=== PATIENT | male | born 1990 | race Two or more races ===

== ENCOUNTER 2016-09-04 20:42 | Emergency (ER) | payer OTHER ==
[2016-09-04 20:48] VITALS: BP 143/81; PULSE 88; TEMP 98.3; BMI 25.7
--- NOTE | 2016-09-04 20:56 | PDOC ---
History of Present Illness - General History Source: Patient Exam Limitations: No Limitations - History of Present Illness Initial Comments: 09/04/16 21:18 The patient is a 25 year old male with no significant past medical history, who presents to the ED with left sided neck pain that first began 3 days ago. Patient states the pain radiates down the left arm and to the left shoulder blade. He states he has been taking Motrin 600 mg with mild alleviation. Patient states he does [employer]. Patient states he has been seeing a Chiropractor for the past two weeks. He informed he that he might have a pinched nerve. PAST MEDICAL HISTORY: no significant history PAST SURGICAL HISTORY: no significant history FAMILY HISTORY: no pertinent history SOCIAL HISTORY: Pt lives with family and is employed. MEDICATIONS: reviewed ALLERGIES: As per nursing notes ROS General: No fevers or chills, no weakness, no weight loss HEENT: No change in vision. No sore throat,. No ear pain CardioVascular: No chest pain or shortness of breath Respiratory:No cough, or wheezing. Gastrointestinal: no nausea, vomiting, diarrhea or constipation, No rectal bleeding Genitourinary: No dysuria, hematuria, or frequency Musculoskeletal: + left sided neck pain radiating to the left shoulder blade and down the left arm. Neurologic: No headache, vertigo, dizziness or loss of consciousness Psychiatric: nor depression Skin: No rashes or easy bruising Endocrine: no increased thirst or abnormal weight change Allergic: no skin or latex allergy All other systems reviewed and normal PE GENERAL: The patient is awake, alert, and fully oriented, in no acute distress. HEAD: Normal with no signs of trauma. EYES: Pupils equal, round and reactive to light, extraocular movements intact, sclera anicteric, conjunctiva clear. EXTREMITIES: Tenderness to the cervical spine with left paraspinal spasm of the lateral neck and the upper shoulder.Normal range of motion, no edema. NEUROLOGICAL: Normal speech, normal gait. PSYCH: Normal mood, normal affect. SKIN: Warm, Dry, normal turgor, no rashes or lesions noted. <Josue Carl - Last Filed: 09/04/16 21:18> - General History Source: Patient Exam Limitations: No Limitations - History of Present Illness Initial Comments: 09/04/16 23:23 A portion of this note was documented by scribe services under my direction. I have reviewed the details of the note, within reason, and agree with the documentation. The case summary and management plan written by me. Assessment and plan: This is a 25-year-old male who comes in complaining of neck pain. Patient does martial arts and injured it while doing martial arts 3 days ago. Patient had a cervical spine x-ray that was questionable for subluxation however CAT scan was negative for any acute subluxation or injury. Patient given muscle relaxant and anti-inflammatory and it feels better. Patient discharged home with prescription for additional medication. Patient will follow-up with an orthopedist. Patient given referral to orthopedist <Mallorie White I - Last Filed: 09/04/16 23:25> - General Chief Complaint: Pain, Acute Stated Complaint: STATES HE HAS A PINCHED NERVE IN HIS NECK Time Seen by Provider: 09/04/16 20:43 Past History <Josue Carl - Last Filed: 09/04/16 21:18> - Past Medical History Other medical history: PINCHED NERVE - Psycho/Social/Smoking Cessation Hx Anxiety: No Suicidal Ideation: No Smoking History: Never smoked Have you smoked in the past 12 months: No Information on smoking cessation initiated: No Hx Alcohol Use: No Drug/Substance Use Hx: No Substance Use Type: None <Mallorie White I - Last Filed: 09/04/16 23:25> - Past Medical History Allergies/Adverse Reactions: Allergies Allergy/AdvReac Type Severity Reaction Status Date / Time No Known Allergies Allergy Verified 09/04/16 20:43 Home Medications: Ambulatory Orders NK [No Known Home Medication] 09/04/16 *Physical Exam - Vital Signs Last Vital Signs Temp Pulse Resp BP Pulse Ox 98.3 F 88 18 143/81 98 09/04/16 20:44 09/04/16 20:44 09/04/16 20:44 09/04/16 20:44 09/04/16 20:44 <Josue Carl - Last Filed: 09/04/16 21:18> - Vital Signs Last Vital Signs Temp Pulse Resp BP Pulse Ox 98.3 F 88 18 143/81 98 09/04/16 20:44 09/04/16 20:44 09/04/16 20:44 09/04/16 20:44 09/04/16 20:44 <Mallorie White I - Last Filed: 09/04/16 23:25> *DC/Admit/Observation/Transfer - Attestations Scribe Attestion: 09/04/16 21:19 Documentation prepared by Josue Carl, acting as certified medical assistant for Mallorie White MD. <Josue Carl - Last Filed: 09/04/16 21:18> - Discharge Dispostion Admit: No <Mallorie White I - Last Filed: 09/04/16 23:25> Diagnosis at time of Disposition: Acute strain of neck muscle Qualifiers: Encounter type: initial encounter Qualified Code(s): S16.1XXA - Strain of muscle, fascia and tendon at neck level, initial encounter - Discharge Dispostion Disposition: HOME Condition at time of disposition: Stable - Patient Instructions Additional Instructions: For the pain take Naprosyn 1 tablet twice a day with food don't take on an empty stomach. In addition to that for muscle spasm take Valium one tablet twice a day if you take the Valium you cannot drive or operate any equipment or do anything that requires your concentration as it will make you drowsy. Follow-up with an orthopedist if you need an orthopedist call Dr. Payne at [phone] for an appointment in the morning Return to the emergency department immediately with ANY new, persistent or worsening symptoms. Continue any medications as previously prescribed by your physician. You should follow up with your primary doctor as soon as possible regarding today's emergency department visit. . Please make sure your doctor reviews the results of your emergency evaluation. Thank you for coming to the Emergency Department today for your care. It was a pleasure to see you today. Please note that your evaluation is INCOMPLETE until you follow-up with your doctor.
[2016-09-04] MEDS ORDERED: KETOROLAC TROMETHAMINE 60 MG/2 ML VIAL ONE (21:14)
[2016-09-04] MEDS ORDERED: diazePAM 5 MG TABLET ONE (21:15)
[2016-09-04] MEDS ORDERED: KETOROLAC TROMETHAMINE 60 MG/2 ML VIAL IM ONE (21:19)
[2016-09-04] MEDS ORDERED: diazePAM 5 MG TABLET PO ONE (21:20)
== END 2016-09-04 23:38 | disposition home or self-care (01) ==
LOC: FER 20:42
PROC: 3E0233Z Introduction of Anti-inflammatory into Muscle, Percutaneous Approach (ICD-10-PCS; principal; 2016-09-04)
DX: S16.1XXA Strain of muscle, fascia and tendon at neck level, initial encounter (principal); X58.XXXA Exposure to other specified factors, initial encounter; Y93.89 Activity, other specified; Y92.9 Unspecified place or not applicable
CPT/HCPCS: 72050-TC; 72125-TC; 99281-25